=== PATIENT | female | born 1970 | race American Indian/Alaskan Native ===

== ENCOUNTER 2017-03-28 06:50 | Inpatient (IN) | payer BC, OTHER ==
[2017-03-27 09:58] VITALS: BMI 25.0
[2017-03-28] MEDS ORDERED: Propofol 10 mg/ml Inj (20 ML) ONE (08:10)
[2017-03-28] MEDS ORDERED: Succinylcholine 200 mg/10 ml Inj IV ONE (08:11)
[2017-03-28] MEDS ORDERED: Rocuronium 10 mg/ml (5 ml) ONE (08:11)
[2017-03-28] MEDS ORDERED: ePHEDrine 50 mg/ml Inj ONE (08:11)
[2017-03-28] MEDS ORDERED: Lidocaine 4% (Laryng-O-Jet) Kit MM ONE (08:12)
--- NOTE | 2017-03-28 08:19 | CP.PCM.HP ---
History of Present Illness - History of Present Illness History of Present Illness: fibroid uterus,pelvic pain,anemia Present on Admission - Present on Admission Any Indicators Present on Admission: No Review of Systems - Constitutional Constitutional: As Per HPI - EENT Eyes: As Per HPI Nose/Mouth/Throat: As Per HPI - Cardiovascular Cardiovascular: As Per HPI - Respiratory Respiratory: As Per HPI - Gastrointestinal Gastrointestinal: As Per HPI - Genitourinary Genitourinary: As Per HPI - Reproductive: Female Reproductive:Female: As Per HPI - Menstruation Menstruation: As Per HPI - Musculoskeletal Musculoskeletal: As Per HPI - Integumentary Integumentary: As Per HPI - Neurological Neurological: As Per HPI - Psychiatric Psychiatric: As Per HPI - Endocrine Endocrine: As Per HPI - Hematologic/Lymphatic Hematologic: As Per HPI Past Patient History - Past Medical History & Family History Past Medical History?: Yes - Past Social History Smoking Status: Never Smoked - CARDIAC Hx Cardiac Disorders: No Hx Hypertension: Yes - HEMATOLOGICAL/ONCOLOGICAL Hx Blood Disorders: Yes Hx Anemia: Yes Hx Blood Transfusions: No - INTEGUMENTARY Hx Dermatological Problems: No - MUSCULOSKELETAL/RHEUMATOLOGICAL Hx Musculoskeletal Disorders: No - GASTROINTESTINAL Hx Gastrointestinal Disorders: No - GENITOURINARY/GYNECOLOGICAL Hx Genitourinary Disorders: No - PSYCHIATRIC Hx Emotional Abuse: No Hx Physical Abuse: No - SURGICAL HISTORY Hx Surgeries: No - ANESTHESIA Hx Anesthesia: Yes Hx Anesthesia Reactions: No Hx Malignant Hyperthermia: No Has any member of the family had a problem w/ anesthesia?: No Meds Allergies/Adverse Reactions: Allergies Allergy/AdvReac Type Severity Reaction Status Date / Time No Known Allergies Allergy Verified 11/29/16 09:29 Results - Vital Signs Recent Vital Signs: Last Vital Signs Temp 98.4 F 03/28/17 07:36 Pulse 76 03/28/17 07:41 Resp 18 03/28/17 07:36 BP 160/99 H 03/28/17 07:36 Pulse Ox 100 03/28/17 07:36
[2017-03-28] MEDS ORDERED: Midazolam 2 MG/2 ML VIAL ONE ×2 (08:43→10:26)
[2017-03-28] MEDS ORDERED: Sodium Chloride 0.9% 500 ML IV ONE ×6 (09:00→11:35)
[2017-03-28] MEDS ORDERED: Dexamethasone 4 mg/1 ml ONE (09:29)
[2017-03-28] MEDS ORDERED: Labetalol 5 mg/ml Inj 20ML IVP PRN (12:43)
[2017-03-28] MEDS: HYDROmorphone 0.5 mg/0.5 ml ISec IVP PRN ×4 (12:45→13:35)
[2017-03-28] MEDS ORDERED: HYDROmorphone 0.5 mg/0.5 ml ISec ONE (12:49)
[2017-03-28] MEDS: Lactated Ringer's 1,000 ML IV SCH ×2 (14:15→23:36)
[2017-03-28] MEDS: cefOXitin Sodium 1 GM in Sodium Chloride 0.9% 100 ML IVPB SCH (17:54)
[2017-03-28] MEDS: Oxycodone/Acetaminophen 5/325 mg Tab PO PRN (20:54)
[2017-03-28] MEDS ORDERED: HYDROmorphone 1 mg/ml ISec IVP PRN (22:40)
[2017-03-28] MEDS ORDERED: HYDROmorphone 0.5 mg/0.5 ml ISec IVP PRN (23:00)
[2017-03-28] MEDS: Simethicone 80 mg Chewtab PO SCH (23:35)
[2017-03-29] MEDS: cefOXitin Sodium 1 GM in Sodium Chloride 0.9% 100 ML IVPB SCH (00:57)
[2017-03-29] MEDS: Simethicone 80 mg Chewtab PO SCH ×4 (04:59→21:04)
[2017-03-29 10:44] LABS: HEMATOCRIT 25.3 % (34.0-47.0); MEAN CELL VOLUME 74.9 fl (81.0-99.0); MEAN CORPUSCULAR HEMOGLOBIN 24.3 pg (27.0-31.0); MEAN CORPUSCULAR HGB CONC 32.4 g/dL (33.0-37.0); RED CELL DISTRIBUTION WIDTH 14.7 % (11.5-14.5)
[2017-03-29 10:47] LABS: BLOOD UREA NITROGEN 12 mg/dl (7-17); CALCIUM 8.5 mg/dL (8.4-10.2); CARBON DIOXIDE 24 mmol/L (22-30); CHLORIDE 103 mmol/L (98-107); GFR AFRICAN-AMERICAN > 60; GLUCOSE,RANDOM 123 mg/dL (65-105); POTASSIUM 3.6 MMOL/L (3.6-5.0); SODIUM 139 mmol/l (132-148)
[2017-03-29 10:53] LABS: WHITE BLOOD COUNT 10.7 K/uL (4.8-10.8)
[2017-03-29] MEDS: Oxycodone/Acetaminophen 5/325 mg Tab PO PRN ×2 (12:09→17:21)
[2017-03-29] MEDS: Lactated Ringer's 1,000 ML IV SCH ×2 (12:12→21:07)
--- NOTE | 2017-03-29 13:24 | CP.PCM.PN ---
Subjective - Date & Time of Evaluation Date of Evaluation: 03/29/17 Time of Evaluation: 01:25 - Subjective Subjective: feels better today still has less incisional pain Objective - Vital Signs/Intake and Output Vital Signs (last 24 hours): Temp Pulse Resp BP Pulse Ox 98.2 F 69 20 104/65 100 03/29/17 09:00 03/29/17 09:00 03/29/17 09:00 03/29/17 09:00 03/29/17 09:00 Intake and Output: 03/29/17 03/29/17 06:59 18:59 Intake Total 1600 Output Total 2200 Balance -600 - Medications Medications: Current Medications Enalapril Maleate (Vasotec) 10 mg PO DAILY COUNTS INCLUDE 234 BEDS AT THE [facility] Last Admin: 03/29/17 09:21 Dose: 10 mg Hydromorphone HCl (Dilaudid) 1 mg IVP Q4 PRN PRN Reason: pain level 8-10 Last Admin: 03/29/17 06:16 Dose: 1 mg Lactated Ringer's (Lactated Ringer's) 1,000 mls @ 125 mls/hr IV .Q8H COUNTS INCLUDE 234 BEDS AT THE [facility] Last Admin: 03/28/17 23:36 Dose: 125 mls/hr Lactated Ringer's (Lactated Ringer's) 1,000 mls @ 100 mls/hr IV .Q10H COUNTS INCLUDE 234 BEDS AT THE [facility] Last Admin: 03/29/17 12:12 Dose: 100 mls/hr Ketorolac Tromethamine (Toradol) 30 mg IVP Q6 PRN PRN Reason: Pain, moderate (4-7) Last Admin: 03/29/17 01:07 Dose: 30 mg Labetalol HCl (Trandate) 10 mg IVP ONCE PRN PRN Reason: Other Last Admin: 03/28/17 13:37 Dose: 10 mg Ondansetron HCl (Zofran Inj) 4 mg IVP Q8 COUNTS INCLUDE 234 BEDS AT THE [facility] Last Admin: 03/28/17 20:50 Dose: 4 mg Oxycodone/Acetaminophen (Percocet 5/325 Mg Tab) 1 tab PO Q4 PRN PRN Reason: pain level 8 -10 Stop: 03/31/17 20:37 Last Admin: 03/29/17 12:09 Dose: 1 tab Simethicone (Mylicon Chew Tab) 80 mg PO Q6 COUNTS INCLUDE 234 BEDS AT THE [facility] Last Admin: 03/29/17 09:21 Dose: 80 mg - Labs Labs: 03/29/17 10:20 03/29/17 10:20 - Eye Exam Additional comments: v.s stable afebrile lungs clear incision clean and healing Assessment and Plan - Assessment and Plan (Free Text) Assessment: stable pod1 s/p wanda/bso Plan: continue present care advance diet as tolerated dc dressing in pm
[2017-03-29] MEDS: Docusate-Senna 50 mg-8.6 mg Tab PO SCH (21:04)
[2017-03-30] MEDS: Simethicone 80 mg Chewtab PO SCH ×3 (02:59→16:51)
[2017-03-30] MEDS: Oxycodone/Acetaminophen 5/325 mg Tab PO PRN ×4 (05:06→18:12)
[2017-03-30] MEDS: Lactated Ringer's 1,000 ML IV SCH (09:11)
--- NOTE | 2017-03-30 10:50 | CP.PCM.PN ---
Subjective - Date & Time of Evaluation Date of Evaluation: 03/30/17 Time of Evaluation: 10:49 - Subjective Subjective: had lots of nausea last night but no vomiting still some this am but not as bad Denies C/F had bm yesterday but feels weak today. Objective - Vital Signs/Intake and Output Vital Signs (last 24 hours): Temp Pulse Resp BP Pulse Ox 99.6 F 90 20 147/90 100 03/30/17 06:00 03/30/17 06:00 03/30/17 06:00 03/30/17 06:00 03/30/17 06:00 - Medications Medications: Current Medications Enalapril Maleate (Vasotec) 10 mg PO DAILY [facility] Last Admin: 03/30/17 09:17 Dose: 10 mg Hydromorphone HCl (Dilaudid) 1 mg IVP Q4 PRN PRN Reason: pain level 8-10 Last Admin: 03/29/17 06:16 Dose: 1 mg Lactated Ringer's (Lactated Ringer's) 1,000 mls @ 125 mls/hr IV .Q8H [facility] Last Admin: 03/30/17 09:11 Dose: 125 mls/hr Lactated Ringer's (Lactated Ringer's) 1,000 mls @ 100 mls/hr IV .Q10H [facility] Last Admin: 03/29/17 21:07 Dose: 100 mls/hr Ibuprofen (Motrin Tab) 800 mg PO Q6 PRN PRN Reason: Pain, Mild (1-3) Last Admin: 03/29/17 16:00 Dose: 800 mg Labetalol HCl (Trandate) 10 mg IVP ONCE PRN PRN Reason: Other Last Admin: 03/28/17 13:37 Dose: 10 mg Ondansetron HCl (Zofran Inj) 4 mg IVP Q8 [facility] Last Admin: 03/28/17 20:50 Dose: 4 mg Oxycodone/Acetaminophen (Percocet 5/325 Mg Tab) 1 tab PO Q4 PRN PRN Reason: pain level 8 -10 Stop: 03/31/17 20:37 Last Admin: 03/30/17 09:12 Dose: 1 tab Senna/Docusate Sodium (Senokot S 50 Mg-8.6 Mg) 2 tab PO HS [facility] Last Admin: 03/29/17 21:04 Dose: 2 tab Simethicone (Mylicon Chew Tab) 80 mg PO Q6 [facility] Last Admin: 03/30/17 09:16 Dose: 80 mg - Labs Labs: 03/29/17 10:20 03/29/17 10:20 - Constitutional Appears: No Acute Distress - Head Exam Head Exam: ATRAUMATIC - ENT Exam ENT Exam: Mucous Membranes Moist - Neck Exam Neck Exam: Full ROM, Normal Inspection - Respiratory Exam Respiratory Exam: NORMAL BREATHING PATTERN - GI/Abdominal Exam Additional comments: soft Nd depressible not distended Dressing intact no sign of active bleeding removed steady strips and prolene in place no active bleeding or suppt - Extremities Exam Additional comments: no leg edema or calf tenderness - Neurological Exam Neurological Exam: Alert, Awake, Oriented x3 Assessment and Plan - Assessment and Plan (Free Text) Assessment: stable POD #2 TAAH/BSO not tolerating diet well yet and dizziness, Anemia Plan: Repeat CBC this am, start on FeSO4 and continue po care.
[2017-03-30 11:17] LABS: HEMATOCRIT 23.2 % (34.0-47.0); MEAN CELL VOLUME 74.5 fl (81.0-99.0); MEAN CORPUSCULAR HEMOGLOBIN 24.1 pg (27.0-31.0); MEAN CORPUSCULAR HGB CONC 32.4 g/dL (33.0-37.0); RED CELL DISTRIBUTION WIDTH 14.7 % (11.5-14.5); WHITE BLOOD COUNT 10.9 K/uL (4.8-10.8)
[2017-03-30] MEDS: Docusate-Senna 50 mg-8.6 mg Tab PO SCH (21:30)
[2017-03-31] MEDS: Oxycodone/Acetaminophen 5/325 mg Tab PO PRN (02:35)
[2017-03-31] MEDS: Simethicone 80 mg Chewtab PO SCH ×2 (06:10→09:30)
[2017-03-31 06:15] VITALS: O2SAT 99
--- NOTE | 2017-03-31 08:38 | CP.PCM.DIS ---
Provider - Provider Date of Admission: 03/28/17 12:56 Attending physician: Bert Chadwick MD Primary care physician: Bert Chadwick MD Time Spent in preparation of Discharge (in minutes): 25 Hospital Course - Lab Results Lab Results: Most Recent Lab Values WBC 10.9 K/uL (4.8-10.8) H 03/30/17 11:00 RBC 3.11 Mil/uL (3.80-5.20) L 03/30/17 11:00 Hgb 7.5 g/dL (12.0-16.0) L 03/30/17 11:00 Hct 23.2 % (34.0-47.0) L 03/30/17 11:00 MCV 74.5 fl (81.0-99.0) L 03/30/17 11:00 MCH 24.1 pg (27.0-31.0) L 03/30/17 11:00 MCHC 32.4 g/dL (33.0-37.0) L 03/30/17 11:00 RDW 14.7 % (11.5-14.5) H 03/30/17 11:00 Plt Count 202 K/uL (130-400) 03/30/17 11:00 Sodium 139 mmol/l (132-148) 03/29/17 10:20 Potassium 3.6 MMOL/L (3.6-5.0) 03/29/17 10:20 Chloride 103 mmol/L (98-107) 03/29/17 10:20 Carbon Dioxide 24 mmol/L (22-30) 03/29/17 10:20 Anion Gap 15 (10-20) 03/29/17 10:20 BUN 12 mg/dl (7-17) 03/29/17 10:20 Creatinine 0.7 mg/dL (0.7-1.2) 03/29/17 10:20 Est GFR ( Amer) > 60 03/29/17 10:20 Est GFR (Non-Af Amer) > 60 03/29/17 10:20 Random Glucose 123 mg/dL (65-105) H 03/29/17 10:20 Calcium 8.5 mg/dL (8.4-10.2) 03/29/17 10:20 - Hospital Course Hospital Course: uneventful incision healing clean no bleeding Discharge Exam - Head Exam Head Exam: ATRAUMATIC - Eye Exam Pupil Exam: NORMAL ACCOMODATION - Respiratory Exam Respiratory Exam: NORMAL BREATHING PATTERN - GI/Abdominal Exam GI & Abdominal Exam: Unremarkable Discharge Plan - Follow Up Plan Condition: GOOD Disposition: HOME/ ROUTINE Patient education suggested?: Yes Additional Instructions: call office if any problems Referrals: Bert Chadwick MD [Primary Care Provider] -
[2017-03-31 08:58] VITALS: BP 131/79; PULSE 87; RESP 18; TEMP 99.2
--- NOTE | 2017-04-04 20:15 | OP ---
PROCEDURE DATE: 03/28/2017 PREOPERATIVE DIAGNOSES: Fibroid uterus, pelvic pain, and anemia. POSTOPERATIVE DIAGNOSES: Fibroid uterus, pelvic pain, and anemia. PROCEDURE: Total abdominal hysterectomy and bilateral salpingo-oophorectomy. SURGEON: Bert Chadwick MD. ROAD ADVISOR: Abhijeet Miller MD. TYPE OF ANESTHESIA: General anesthesia. ANESTHESIA ADMINISTERED BY: Yesenia Castillo MD. ESTIMATED BLOOD LOSS: About 150 mL. DESCRIPTION OF PROCEDURE: With the patient in the supine position under general anesthesia, Dr. Miller and I prepared the patient for surgery. Dr. Miller was there from the beginning. We prepared the patient for surgery. After this was done, Pfannenstiel incision was made and taken down to the fascia in layers. Dr. Miller assisted in each step of the way. Fascia was incised and extended bilaterally. Dr. Miller doing his side and I am doing my side. The muscle from the fascia by sharp dissection, after which the muscles were opened in the midline. Peritoneum was grasped, incised and extended vertically. Upon entering the abdominopelvic cavity, the bowel was packed away from the operative field and a retractor put into place. The uterus was then elevated and both round ligaments were doubly clamped, cut, and ligated bilaterally. After this was done, the bladder flap was established, pushing the bladder away from the operative field, then through the vascular space in posterior broad ligament, the ovary, tubes, and the infundibulopelvic ligament was doubly clamped, cut, and ligated bilaterally, maintaining hemostasis. Following this, the uterine arteries were dissected, doubly clamped, cut, and ligated bilaterally, maintaining hemostasis. Dr. Miller doing his side and I am doing my side. Following this, several bites were taken down into the cervix bilaterally until the vagina was approximated. After this was done, we entered posteriorly and the uterus was removed. After removing the uterus, a lap with Betadine and 4 x 4 was placed in the vaginal canal. We then proceeded to put angled sutures on the vaginal cuff and the vaginal cuff was run with running interlocking stitch. After this was done, interrupted [id number] were then applied, closing off the vaginal cuff, maintaining hemostasis. Following this, the cuff was re-peritonealized, maintaining hemostasis. Then, irrigation was done and hemostasis was observed. We then removed the packing from the abdominal cavity and also the self-retaining retractor. Peritoneum was grasped, closed with 2-0 chromic, after which, muscle also approximated with 2-[address] Miller assisting me each step of the way. After this was done, the fascia was closed with [address] Miller doing his side, I am doing my side. The subcutaneous layer was approximated with 2-0 plain and the skin was closed in subcuticular fashion using 3-0 Prolene. Hemostasis was also observed. Following this, the Steri-Strip was applied to the incision and the incision was then closed. Bandage was applied to the incision. Estimated blood loss was about 150 mL. The patient tolerated the procedure well and was in satisfactory condition on her way to recovery room. Bert Chadwick MD
== END 2017-03-31 13:35 | disposition home or self-care (01) | DRG 743 ==
LOC: H.OPSURG 06:50 → H.PEDS 12:56
PROVIDERS: ADMIT Specialist; ATTEND Specialist
PROC: 0UTC0ZZ Resection of Cervix, Open Approach (ICD-10-PCS; 2017-03-28)
PROC: 0UT70ZZ Resection of Bilateral Fallopian Tubes, Open Approach (ICD-10-PCS; 2017-03-28)
PROC: 0UT20ZZ Resection of Bilateral Ovaries, Open Approach (ICD-10-PCS; 2017-03-28)
PROC: 0UT90ZZ Resection of Uterus, Open Approach (ICD-10-PCS; principal; 2017-03-28 09:00)
DX: D25.9 Leiomyoma of uterus, unspecified (principal); D64.9 Anemia, unspecified; R10.2 Pelvic and perineal pain